=== PATIENT | female | born 1965 | race Caucasian/White ===

== ENCOUNTER 2018-12-25 15:22 | Emergency (ER) | payer OTHER ==
--- NOTE | 2018-12-25 16:23 | ED ---
GI/ HPI - HPI Summary HPI Summary: A 53 y/o female presents to [facility] with a cheif complaint of watery diarrhea for the past three days. She denies any blood in her stool or N/V but reports occasional cramps and a fever. At triage the patient rated her pain as a 0/10 in severity. She denies any recent travel and says that nobody that she knows is sick. - History of Current Complaint Chief Complaint: EDNauseaVomitDiarrh Time Seen by Provider: 12/25/18 16:04 Stated Complaint: FEVER DIARRHEA PER PT Hx Obtained From: Patient Onset/Duration: Started Days Ago, Still Present Timing: Constant, Lasting Days Severity: Mild Current Severity: Mild Pain Intensity: 0 - out of 10 Location of Pain: Diffuse Pain Characteristics: Cramping Associated Signs and Symptoms: Positive: Fever, Abdominal Pain - cramping. Negative: Nausea, Vomiting, Blood w/Stool Aggravating Factor(s): Nothing Alleviating Factor(s): Nothing - Allergy/Home Medications Allergies/Adverse Reactions: Allergies Allergy/AdvReac Type Severity Reaction Status Date / Time desonide Allergy Severe Shortness Verified 12/25/18 15:28 of Breath oxycodone Allergy Severe Itching Verified 12/25/18 15:28 Home Medications: Home Medications Hizentra 1 iv.soln SUBCUT WEEKLY 12/25/18 [History Confirmed 12/25/18] Levothyroxine Sodium [Tirosint] 25 mcg PO DAILY 12/25/18 [History Confirmed 06/14] Liothyronine TAB* [Cytomel TAB*] 5 mcg PO DAILY 12/25/18 [History Confirmed 06/14] Nature-Throid 130 mg PO BID 12/25/18 [History Confirmed 12/25/18] PMH/Surg Hx/FS Hx/Imm Hx Infectious Disease History: No Infectious Disease History: Denies: Traveled Outside the [place] in Last 30 Days - Social History Alcohol Use: None Substance Use Type: Reports: None Smoking Status (MU): Never Smoked Tobacco Review of Systems Positive: Fever - but 98.4 at triage Positive: Abdominal Pain - cramping, Diarrhea, Other - negative: blood in stool. Negative: Vomiting, Nausea All Other Systems Reviewed And Are Negative: Yes Physical Exam - Summary Physical Exam Summary: Appearance: The patient is well-nourished in no acute distress and in no acute pain. Skin: The skin is warm and dry and skin color reflects adequate perfusion. HEENT: The head is normocephalic and atraumatic. The pupils are equal and reactive. The conjunctivae are clear and without drainage. Nares are patent and without drainage. Mouth reveals moist mucous membranes and the throat is without erythema and exudate. The external ears are intact. The ear canals are patent and without drainage. The tympanic membranes are intact. Neck: The neck is supple with full range of motion and non-tender. There are no carotid bruits. There is no neck vein distension. Respiratory: Chest is non-tender. Lungs are clear to auscultation and breath sounds are symmetrical and equal. Cardiovascular: Heart is regular rate and rhythm. There is no murmur or rub auscultated. There is no peripheral edema and pulses are symmetrical and equal. Abdomen: The abdomen is soft and non-tender. There are normal bowel sounds heard in all four quadrants and there is no organomegaly palpated. Musculoskeletal: There is no back tenderness noted. Extremities are non-tender with full range of motion. There is good capillary refill. There is no peripheral edema or calf tenderness elicited. Neurological: Patient is alert and oriented to person, place and time. The patient has symmetrical motor strength in all four extremities. Cranial nerves are grossly intact. Deep tendon reflexes are symmetrical and equal in all four extremities. Psychiatric: The patient has an appropriate affect and does not exhibit any anxiety or depression. Triage Information Reviewed: Yes Vital Signs On Initial Exam: Initial Vitals Temp Pulse Resp BP Pulse Ox 98.4 F 86 16 123/84 98 12/25/18 15:25 12/25/18 15:25 12/25/18 15:25 12/25/18 15:25 12/25/18 15:25 Vital Signs Reviewed: Yes Diagnostics - Vital Signs Vital Signs Temp Pulse Resp BP Pulse Ox 12/25/18 15:38 83 97 12/25/18 15:35 85 132/81 99 12/25/18 15:25 98.4 F 86 16 123/84 98 - Laboratory Result Diagrams: 12/25/18 16:45 12/25/18 16:45 Lab Statement: Any lab studies that have been ordered have been reviewed, and results considered in the medical decision making process. GIGU Course/Dx - Course Course Of Treatment: Ms. Szymanski presented with 3 days of watery diarrhea on accompanied by nausea or vomiting. She did have mild crampy abdominal pain prior to an episode. She was nontoxic appearing with stable vital signs. Labs were obtained and she was rehydrated. Her labs are unremarkable. We tried to get a stool sample and she was able to give a small amount but there was a mistake and collecting it and the lab was not able to run tests. I think this is likely a self-limiting diarrhea and recommended continued symptomatic treatment and follow-up if not improved. - Diagnoses Provider Diagnoses: Diarrhea Discharge - Sign-Out/Discharge Documenting (check all that apply): Patient Departure - DC Patient Received Moderate/Deep Sedation with Procedure: No - Discharge Plan Condition: Stable Disposition: HOME Patient Education Materials: Acute Diarrhea (ED) Referrals: Alvarez Saab MD [Primary Care Provider] - (2-3 days) Additional Instructions: Follow up with your PCP in 2-3 days. Return to the ED if you experience any new or worsening symptoms. - Billing Disposition and Condition Condition: STABLE Disposition: Home - Attestation Statements Document Initiated by Debiibe: Yes Documenting Scribe: Remy Plascencia Provider For Whom Debiibe is Documenting (Include Credential): Jones Quinn MD Scribe Attestation: I, Remy Plascencia, scribed for Jones Quinn MD on 12/25/18 at 2201. Scribe Documentation Reviewed: Yes Provider Attestation: The documentation as recorded by the Remy farley accurately reflects the service I personally performed and the decisions made by me, Jones Quinn MD Status of Scribe Document: Viewed
[2018-12-25] MEDS ORDERED: NS 0.9% 1000 ML** 1,000 ML IV ONE (16:35)
[2018-12-25 16:53] LABS: Urine Appearance Clear; Urine Bacteria Absent (Absent); Urine Bilirubin Negative (Negative); Urine Blood 1+ (Negative); Urine Color Yellow; Urine Glucose Negative (Negative); Urine Ketones Negative (Negative); Urine Nitrite Negative (Negative); Urine Protein Negative (Negative); Urine Red Blood Cell Trace(0-2/hpf) (Absent); Urine Specific Gravity 1.009 (1.010-1.030); Urine Squamous Epithelial Cell Present (Absent); Urine Urobilinogen Negative (Negative); Urine White Blood Cell Trace(0-5/hpf) (Absent)
[2018-12-25 16:55] LABS: Hematocrit 40 % (35-47); Hemoglobin 14.3 g/dL (12.0-16.0); Mean Corpuscular HGB Conc 36 g/dL (31-36); Mean Corpuscular Hemoglobin 30 pg (27-31); Mean Corpuscular Volume 86 fL (80-97); Mean Platelet Volume 8.1 fL (7.4-10.4); Platelet Count 207 10^3/uL (150-450); Red Cell Distribution Width 13 % (10-15); White Blood Count 3.7 10^3/uL (3.5-10.8)
[2018-12-25 17:12] LABS: Albumin 4.4 g/dL (3.2-5.2); Albumin/Globulin Ratio 1.2 (1-3); BUN/Creatinine Ratio 13.6 (8-20); C Reactive Protein 16.32 mg/L (<8.01); Calcium 9.6 mg/dL (8.6-10.3); EGFR African American 112.9 (>60); EGFR Non-African American 93.3 (>60); Globulin 3.7 g/dL (2-4); Total Bilirubin 0.6 mg/dL (0.2-1.0); Total Protein 8.1 g/dL (6.4-8.9)
[2018-12-25 17:13] VITALS: BP 102/65
[2018-12-25 17:32] LABS: ABS Eosinophils 0.1 10^3/ul (0-0.6); ABS Lymphocytes 1.1 10^3/ul (1.0-4.8); ABS Monocytes 0.5 10^3/ul (0-0.8); Eosinophil % 2.4 %; Lymphocyte % 29.2 %; Nucleated Red Blood Cells % 0.1
== END 2018-12-25 20:25 | disposition home or self-care (01) ==
LOC: ED 15:22
DX: R19.7 Diarrhea, unspecified (principal); Z88.5 Allergy status to narcotic agent; Z88.8 Allergy status to other drugs, medicaments and biological substances; Z79.899 Other long term (current) drug therapy
CPT/HCPCS: 36415; 80053; 81003; 81015; 83605; 83690; 85025; 85060; 86140; 87086; 96360; 96361; 99282